=== PATIENT | male | born 1970 | race African-American/Black ===

== ENCOUNTER 2022-12-29 17:17 | Inpatient (IN) | payer MEDICAID ==
[~2022-12-29] VITALS: Ht 185.4 cm; Wt 66.2 kg
[2022-12-29 17:19] VITALS: BP_SYST 142; PULSE 100; RESP 19; TEMP 98; O2SAT 99
[2022-12-29 18:09] LABS: BASOPHILS % (AUTO) 0.4 % (0.0-2.0); EOSINOPHILS # (AUTO) 0.3 K/uL (0.0-0.4); EOSINOPHILS % (AUTO) 2.8 % (0.0-4.0); HEMOGLOBIN 12.5 g/dL (14.0-18.0); LYMPHOCYTES # (AUTO) 0.8 K/uL (1.0-5.5); LYMPHOCYTES % (AUTO) 7.7 % (20.5-51.5); MEAN CORPUSCULAR HEMOGLOBIN 27 pg (27-31); MEAN CORPUSCULAR HGB CONC 33 % (32-36); MEAN CORPUSCULAR VOLUME 83 fL (79.0-98.0); MONOCYTES # (AUTO) 0.5 K/uL (0.0-1.0); MONOCYTES % (AUTO) 4.4 % (1.7-9.3); NEUTROPHILS # (AUTO) 9.3 K/uL (1.8-7.7); NEUTROPHILS % (AUTO) 84.7 % (40.0-70.0); PLATELET COUNT (AUTO) 325 K/uL (130-430); RED BLOOD CELL COUNT(AUTO) 4.58 MIL/uL (4.2-6.2); RED CELL DISTRIBUTION WIDTH 15.6 % (9.0-15.0)
[2022-12-29 18:16] LABS: INR 1.1 (0.80-1.20)
[2022-12-29 18:19] LABS: ANION GAP 7 (5-15); ASPARTATE AMINOTRANSFERASE 21 U/L (10-37); CALCIUM 8.2 mg/dL (8.4-11.0); CARBON DIOXIDE 28 mmol/L (23-29); CHLORIDE 99 mmol/L (98-107); CREATININE 1.24 mg/dL (0.55-1.30); GFR AFRICAN AMERICAN 79 mL/min (>90); GLUCOSE 154 mg/dL (74-106); POTASSIUM 3.4 mmol/L (3.5-5.1); SODIUM SERUM 134 mmol/L (136-145); TOTAL BILIRUBIN 0.3 mg/dL (0.0-1.0); TOTAL PROTEIN, SERUM 7.2 g/dL (6.4-8.3); UREA NITROGEN, BLOOD 15 mg/dL (8-21)
[2022-12-29 18:20] LABS: GFR NON AFRICAN-AMERICAN 65 mL/min (>90)
[2022-12-29 18:33] LABS: CREATINE KINASE, TOTAL 177 U/L (39-308); SALICYLATE 3 mg/dL (3-30)
[2022-12-29 18:48] LABS: ACETAMINOPHEN < 1 ug/mL (1-30); ALCOHOL, BLOOD < 3 mg/dL (<10)
[2022-12-29 19:01] LABS: ALANINE AMINOTRANSFERASE 10 U/L (12-78)
[2022-12-29] MEDS ORDERED: NACL 0.9% 2,000 ML IV ONE (19:15)
[2022-12-29] MEDS ORDERED: NITROGLYCERIN 1 INCH (GM) OINT. TP ONE (21:15)
[2022-12-29] MEDS ORDERED: ASPIRIN 325 MG TABLET PO ONE (21:15)
[2022-12-29 21:43] LABS: BILIRUBIN,URINE NEGATIVE (NEGATIVE); BLOOD, URINE TRACE (NEGATIVE); CLARITY/URINE CLEAR (CLEAR); GLUCOSE,URINE NEGATIVE (NEGATIVE); NITRITE, URINE NEGATIVE (NEGATIVE); PH,URINE 5.5 (5.0-8.0)
[2022-12-29 21:44] LABS: MUCUS,URINE None Seen /LPF (None Seen)
[2022-12-29 21:59] LABS: COLOR,URINE YELLOW (YELLOW); PROTEIN URINE TRACE (NEGATIVE)
[2022-12-29 22:00] LABS: KETONES,URINE 1+ (NEGATIVE); LEUKOCYTE ESTERASE ,URINE 2+ (NEGATIVE)
[2022-12-29 22:01] LABS: BACTERIA,URINE FEW /HPF (None Seen); RBC,URINE NONE SEEN /HPF (0-3)
[2022-12-29 22:03] LABS: WBC,URINE 20-50 /HPF (0-3)
[2022-12-29 22:04] LABS: BARBITURATE, URINE NEGATIVE (NEG <=200); BENZODIAZEPINE, URINE NEGATIVE (NEG <=150); CANNABINOID, URINE NEGATIVE (NEG <=50); COCAINE, URINE NEGATIVE (NEG <=150); METHAMPHETAMINES SCREEN,URINE POSITIVE (NEG <=500); OPIATE, URINE NEGATIVE (NEG <=100); PHENCYCLIDINE SCREEN,URINE NEGATIVE (NEG <=25); URINE AMPHETAMINE POSITIVE (NEG <=500); URINE METHADONE NEGATIVE (NEG <=200); URINE OXYCODONE SCREEN NEGATIVE (NEG <=100); URINE PROPOXYPHENE SCREEN NEGATIVE (NEG <=300)
[2022-12-29 22:05] LABS: UR TRICYCLIC ANTIDEPRESSANTS NEGATIVE (NEG <=300)
[2022-12-30] VITALS (7 sets, daily range): BP systolic 100–113; PULSE 53–70; RESP 16–20; TEMP 97.9–98.9; O2SAT 96–100
[2022-12-30] MEDS ORDERED: ACETAMINOPHEN 500 MG TABLET PO PRN (03:00)
[2022-12-30] MEDS ORDERED: HYDROcodone/ACETAMIN 7.5-325 MG TAB PO PRN (03:00)
[2022-12-30] MEDS ORDERED: cefTRIAXone 1 GM in D5W 50 ML IV ONE (03:00)
[2022-12-30] MEDS ORDERED: ONDANSETRON HCL 4 MG/2 ML VIAL IVP PRN (03:00)
[2022-12-30] MEDS ORDERED: guaiFENesin/DEXTROMETHORPHAN 10 ML UDC PO PRN (03:00)
[2022-12-30] MEDS ORDERED: MORPHINE 2 MG/ML INJ. SYRINGE IVP PRN (03:00)
[2022-12-30] MEDS ORDERED: ZOLPIDEM TARTRATE 5 MG TABLET PO PRN (03:00)
[2022-12-30] MEDS ORDERED: DOCUSATE SODIUM 100 MG/10 ML UDC PO PRN (03:00)
[2022-12-30] MEDS ORDERED: NITROGLYCERIN 0.4 MG TAB.SUBL SL PRN (03:15)
[2022-12-30 03:51] LABS: FREE T4 (FREE THYROXINE) 0.9 ng/dL (0.6-1.6); PHOSPHORUS 3.9 mg/dL (2.7-4.5); THYROID STIMULATING HORMONE 0.5 uIu/mL (0.34-4.82)
[2022-12-30] MEDS: D5/0.45 NS 1,000 ML IV SCH ×4 (05:04→20:41)
[2022-12-30] MEDS ORDERED: cefTRIAXone 1 GM VIAL ONE (05:09)
[2022-12-30] MEDS ORDERED: ASPIRIN 81 MG TAB.CHEW PO SCH (09:00)
[2022-12-30] MEDS ORDERED: PANTOPRAZOLE SODIUM 40 MG TAB PO SCH (09:00)
[2022-12-31 03:33] VITALS: O2SAT 96
[2022-12-31] MEDS: D5/0.45 NS 1,000 ML IV SCH (04:28)
[2022-12-31 04:29] LABS: BASOPHILS # (AUTO) 0.1 K/uL (0.0-0.2); BASOPHILS % (AUTO) 0.5 % (0.0-2.0); EOSINOPHILS # (AUTO) 0.3 K/uL (0.0-0.4); EOSINOPHILS % (AUTO) 2.2 % (0.0-4.0); HEMATOCRIT 37.6 % (36-54); HEMOGLOBIN 12.2 g/dL (14.0-18.0); LYMPHOCYTES % (AUTO) 14.2 % (20.5-51.5); MEAN CORPUSCULAR HEMOGLOBIN 27 pg (27-31); MEAN CORPUSCULAR HGB CONC 32 % (32-36); MEAN CORPUSCULAR VOLUME 83 fL (79.0-98.0); MONOCYTES # (AUTO) 1.9 K/uL (0.0-1.0); MONOCYTES % (AUTO) 13.3 % (1.7-9.3); NEUTROPHILS # (AUTO) 9.8 K/uL (1.8-7.7); NEUTROPHILS % (AUTO) 69.8 % (40.0-70.0); PLATELET COUNT (AUTO) 297 K/uL (130-430); RED BLOOD CELL COUNT(AUTO) 4.56 MIL/uL (4.2-6.2); RED CELL DISTRIBUTION WIDTH 15.1 % (9.0-15.0); WHITE BLOOD COUNT (AUTO) 14.1 K/uL (4.8-10.8)
[2022-12-31 04:31] VITALS: BP_SYST 113; PULSE 59; RESP 20; TEMP 97.2; O2SAT 95
[2022-12-31 04:57] LABS: CALCIUM 8.2 mg/dL (8.4-11.0); CREATININE 0.89 mg/dL (0.55-1.30); POTASSIUM 3.9 mmol/L (3.5-5.1)
[2022-12-31] MEDS ORDERED: POTASSIUM CHLORIDE 20 MEQ TAB.PRT.SR PO PRN (09:00)
== END 2022-12-31 08:00 | disposition left against medical advice (07) | DRG 812 ==
LOC: SED 17:17 → STU 12-30 02:24 → SMU 12-30 04:24 → STU 12-30 04:27
PROVIDERS: ADMIT Family Medicine; ATTEND Family Medicine
DX: T40.601A Poisoning by unspecified narcotics, accidental (unintentional), initial encounter (principal); G92.8 Other toxic encephalopathy; I21.A1 Myocardial infarction type 2; E44.1 Mild protein-calorie malnutrition; E87.1 Hypo-osmolality and hyponatremia; E87.6 Hypokalemia; F11.10 Opioid abuse, uncomplicated; Z53.29 Procedure and treatment not carried out because of patient's decision for other reasons; F15.10 Other stimulant abuse, uncomplicated; R73.9 Hyperglycemia, unspecified; Z87.891 Personal history of nicotine dependence; Y92.89 Other specified places as the place of occurrence of the external cause; Z68.1 Body mass index [BMI] 19.9 or less, adult
CPT/HCPCS: 36415; 71045; 80048; 80053; 80061; 80307; 81000; 82150; 82550; 83037; 83605; 83690; 83735; 83880; 84100; 84439; 84443; 84484; 85025; 85610-TC; 85730-TC; 87086; 93005; 93306; 99285; G0378; G0480; G0481; G0482; J0696; J7060